=== PATIENT | female | born 1940 | race Caucasian/White ===

== ENCOUNTER 2020-08-31 08:46 | Outpatient (CLI) | payer MEDICARE, OTHER, SELFPAY ==
--- NOTE | 2020-08-31 17:37 | ONC CON_ITS ---
Dr. Pedraza New Patient Note Patient: Alma Delia Morlaez Unit #: [id number]: 1940 Dicatated By: Des Pedraza M.D.Date of Visit: August 31, 2020 Onc MED New Patient/Consult Referring Physician: Dr. JOHN BAZAN M.D. History of Present Illness: Ms. 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 Surveillance was planned As per patient recently she had a fall and sustained injury in her left chest, noticed some fullness and a skin lesion in the left axilla which was read, raised, scaly and tender and went to see Dr. Trevino charter boat captain in [facility] on July 06, 2020. Patient underwent MRI scan of the chest on July 25, 2020 which showed potential scattered bilateral pulmonary nodules, largest measuring up to 10 mm in the right lung, small lymph nodes within the axillary region do not appear to be enlarged. Hepatic cyst, renal cyst, for further evaluation CT scan of the chest was suggested which was done on August 11, 2020 which showed bilateral pulmonary nodules largest being 1 cm in the right side and small cluster of nodules in the right side and 4.4 mm posteriorly and inferiorly in the left lung and 1.5 cm low-density area in the posterior aspect of the right lobe of the liver could be metastatic disease versus cavernous hemangioma, or unusual cyst As patient has history of melanoma removal from left deltoid area/shoulder in May 2019, with MRI scan of the chest and followed by CT scan of chest done in July 2020 shows multiple pulmonary nodules and liver nodule, there was a concern about possible metastatic disease, she was referred from oncology clinic for evaluation Patient denies any specific complaints, no fever chills, no nausea or vomiting, no diarrhea constipation, no hemoptysis or hematemesis, no jaundice, no new bony pains, left axilla/chest wall pain/fullness has resolved., Appetite is good, no weight loss Past Medical History: Ms. Moralez's medical history consists of coronary arteriosclerosis, gastroesophageal reflux disease, hypercholesterolemia, and type II diabetes. Past Surgical History: Ms. Moralez's surgical/procedural history consists of shoulder repair in 2011 and hysterectomy in 1981. Medications: Aspirin 1 Tablet (of 81 mg) Tablet, chewable Oral daily, Atorvastatin Calcium 1 Tablet (of 20 mg) Oral daily, Daily Multiple Vitamins 1 Tablet Oral daily, glyBURIDE 0.5 Tablet (of 5 mg) Oral b.i.d., hydroCHLOROthiazide 1 Tablet (of 12.5 mg) Oral daily, Losartan Potassium 2 Tablet (of 50 mg) Oral b.i.d., metFORMIN HCl 1 Tablet (of 1000 mg) Oral b.i.d., NIFEdipine ER 1 Tablet (of 90 mg) Tablet SR 24 HR Oral daily, Propranolol HCl 1 Tablet (of 80 mg) Oral b.i.d. Allergies: Codeine Sulfate Social History: Ms. Moralez is . Ms. Moralez has never smoked. She has no history of drinking. Family History: Ms. Moralez's mother at age 67: type II diabetes, and myocardial infarction. Ms. Moralez's father at age 54: chronic kidney disease, and LUNG CANCER. Ms. Moralez has 3 brothers: 1 alive, 2 . She has 3 sisters: 1 alive, 2 . 4 CHILDREN, CAUSES OF INCLUDE: LUNG CANCER, STROKE, PREMATURE OF TWINS SIBLINGS CAUSES OF INCLUDE: LUNG CANCER, ALCOHOL ABUSE, HEART DISEASE. Review Of Symptoms: Review of Systems is not available for this patient. Vital Signs: Performed on August 31, 2020 15:14: 0, 31.33 (HIGH), 1.70 sq.m, 60 in, 97 %, 63 /min, 18 /min, 165/70 mm(hg) (HIGH), 97.2 F (LOW), and 160.4 lbs (HIGH). Performance Status: 0 - Fully active, able to carry on all predisease activities without restrictions. (ECOG) Physical Examination: ENMT - No mouth sores, no thrush, no jaundice, no cervical or axillary lymphadenopathy, Respiratory - Lungs are clear to auscultation, Cardiovascular - Regular rate and rhythm of heart, Abdomen - Soft, bowel sounds present, Extremities - No visible edema or rash. Lab/Imaging: Most recent lab results are not available for this patient. Impression: pT2a, NX, MX melanoma status post shave biopsy in May 2019 which showed 1.8 mm, no ulceration, peripheral margin positive for in situ, Demetrius level IV, 12 mitosis, lymph nodes clinically negative, patient underwent wide excision in May 2019 and clear margins obtained, patient declined sentinel lymph node biopsy,, Done at [facility] patient underwent CT scan of the chest on May 26, 2019 which showed multiple soft tissue nodules throughout all the lobes of both lungs largest measured 1 cm in the right lung and hypodense hypoenhancing lesion in the liver size about 1.2 cm, indeterminate in etiology most likely benign like hemangioma. Follow-up MRI scan of the chest Ordered by dermatology for left chest wall/axilla fullness/pain due to fall , done on July 25, 2020 showed potentially scattered bilateral pulmonary nodules, largest measure up to 10 mm in the right lung, small lymph nodes within her axillary region do not appear to be enlarged. Hepatic cysts Follow-up CT scan of chest done on August 11, 2020 showed multiple bilateral lung nodules largest is 1 cm in the right lung and in the right lobe of liver there is a hypodense area measuring 1.5 cm which could represent small cyst but could not completely exclude metastatic disease. Plan: Discussed with patient regarding her recent done CT scan of chest abdomen and MRI scan of the chest findings and when compared with CT scan of chest done in May 2019, showed no significant changes especially in the lung There is absolutely no change in bilateral pulmonary nodulesover the period of 14 months whereas liver lesion is 1.5 cm compared to 1.2 cm more than a year ago. Based on this comparison, and no other new symptoms, we would continue to observe and repeat CT scan of chest abdomen in 3 months and if there is a progression, will consider CT PET scan and possible biopsy. Discussed with patient's family, and daughter and agreed, case was also discussed with Dr. Trevino, charter boat captain. Return to clinic in 3 months with CBC CMP and follow-up CT scan of chest and abdomen. Signed By: Des Pedraza M.D. <<Signature on File>>
== END 2020-08-31 08:47 | disposition home or self-care (01) ==
PROVIDERS: Family Provider Family Medicine; Visit Provider Internal Medicine Hematology & Oncology
DX: D03.8 Melanoma in situ of other sites (principal); R91.1 Solitary pulmonary nodule; K76.89 Other specified diseases of liver; Z79.899 Other long term (current) drug therapy
CPT/HCPCS: 99204

== ENCOUNTER 2020-11-29 13:29 | Outpatient (CLI) | payer MEDICARE, OTHER, SELFPAY ==
--- NOTE | 2020-11-29 13:58 | CT_ITS ---
WS: [id number] CT CHEST AND ABDOMEN TECHNIQUE: Contrast-enhanced CT of the chest and abdomen with coronal and sagittal reformatted images . CLINICAL INFORMATION: MELANOMA IN SITU OF RIGHT UPPER LIMB, INCLUDING SHOULDER COMPARISON: Outside chest CT August 11, 2020 DLP: 1809.[address] scans at [facility] use at least one of these dose optimization techniques: automat ed exposure control; mA and/or kV adjustment per patient size (includes targeted exams where dose is matched to clinical indication); or iterative reconstruction. CT CHEST: Solid ovoid nodule in the right upper lobe measuring 9.5 mm near the right hilum is unchanged since t he prior CT August 11, 2020. Additional cluster of nodules in the right upper lobe laterally measuring 6.5 mm is unchanged. Clustered micronodularity along the right infrahilar region right upper lobe al so unchanged. 4 mm nodule in the left lower lobe posteriorly is unchanged. NEW 5 mm nodule in the left upper lobe a long the fissure. This was not present previously on August 11, 2020. Recommend 3 month follow-up. A f ew tiny subpleural nodules in the left upper lobe and left lower lobe are unchanged. Normal caliber thoracic aorta. Aortic calcification. Coronary calcification. No mediastinal or hilar lymphadenopathy. No axillary lymphadenopathy. CT ABDOMEN: Hepatomegaly with diffuse fatty infiltration liver. Normal portal vein and splenic vein. Peripheral e nhancing low-attenuation lesion right hepatic lobe measuring 15 mm is unchanged. This may represent c avernous hemangioma. Metastatic disease not entirely excluded. Normal GE junction. Fatty atrophy of t he pancreas. Splenic granulomas. Adrenal glands are normal. Normal renal parenchymal enhancement. No hydronephrosis. Large upper pole left renal cyst measuring 5 .8 x 5.0 CM. Smaller bilateral renal cysts. Normal caliber abdominal aorta. Aortic calcification. No periaortic or retroperitoneal lymphadenopathy. Fat-containing umbilical hernia. Normal thoracic spin e. Disc space narrowing with small disc protrusions at L2-L3 and L4-L5. CT/CT chest abdomen w con* IMPRESSION: 1. Multiple previously described noncalcified pulmonary nodules are stable sin ce August 11, 2020. 2. New noncalcified pulmonary nodule in the inferior segment of the left upper lobe along the fissure measuring 5 mm. This is indeterminate and metastatic di sease not entirely excluded. Recommend 3 month follow-up. 3. Peripheral enhancing 15 mm right hepatic lesion is unchanged since July. Differential considerations include cavernous hemangioma versus metasta tic disease. 4. Hepatomegaly with diffuse fatty infiltration. 5. Large left renal cyst upper pole left kidney measuring 5.8 x 5.0 CM. 6. No abdominal lymphadenopathy in the abdomen. 7. No mediastinal or hilar lymphadenopathy.
[2020-11-29] MEDS: iohexol 300 mg/mL 50 mL Btl PO (14:01)
[2020-11-29] MEDS: iodixanol 320 mg/mL 100mL Btl IV (14:34)
[2020-11-29 14:41] LABS: Blood Urea Nitrogen 17 mg/dL (8-23)
== END 2020-11-29 13:30 | disposition home or self-care (01) ==
PROVIDERS: PCP Internal Medicine; Visit Provider Internal Medicine Hematology & Oncology
DX: D03.61 Melanoma in situ of right upper limb, including shoulder (principal); R91.1 Solitary pulmonary nodule; K76.9 Liver disease, unspecified; R16.0 Hepatomegaly, not elsewhere classified; K76.0 Fatty (change of) liver, not elsewhere classified; N28.1 Cyst of kidney, acquired
CPT/HCPCS: 71260; 74160; 82565; 84520; Q9967

== ENCOUNTER 2020-12-12 10:54 | Outpatient (CLI) | payer MEDICARE, OTHER, SELFPAY ==
[2020-12-12 12:05] LABS: Basophils % 0.4 %; Eosinophils # 0.1 10^3/uL (0.0-0.8); Eosinophils % 0.9 %; Hematocrit 36.8 % (37.0-47.0); Hemoglobin 11.9 g/dL (11.5-15.3); Lymphocytes # 2.2 10^3/uL (0.8-4.8); Lymphocytes % 31.7 %; Mean Corpuscular HGB Conc 32.3 g/dL (30.0-36.0); Mean Corpuscular Hemoglobin 30.4 pg (28.0-34.0); Mean Corpuscular Volume 93.9 fl (81-99); Mean Platelet Volume 9.7 fL (7.4-10.4); Monocytes # 0.7 10^3/uL (0.2-0.9); Monocytes % 10.4 %; Neutrophils # 3.82 10^3/uL (1.8-7.7); Neutrophils % 55.9 %; Nucleated Red Blood Cells % 0 %; Platelet Count 271 10^3/cmm (130-400); Red Blood Count 3.92 10^6/uL (4.1-5.3); Red Cell Distribution Width 13.8 % (12.1-15.1); White Blood Count 6.8 10^3/uL (4.0-10.0)
[2020-12-12 12:26] LABS: Alanine Aminotransferase 13 U/L (0-33); Albumin Level 4.3 g/dL (3.5-5.2); Alkaline Phosphatase 83 IU/L (35-105); Aspartate Amino Transferase 17 U/L (0-32); Blood Urea Nitrogen 17 mg/dL (8-23); Calcium 9.2 mg/dL (8.5-10.5); Carbon Dioxide 28 mmol/L (22-29); Chloride 104 mmol/L (98-107); Globulin 2.6 g/dL (1.3-4.6); Glucose 165 mg/dL (65-115); Osmolality Calculated 299 mOsm/kg (285-295); Sodium 142 mmol/L (136-145); Total Bilirubin 0.4 mg/dL (0.15-1.2); Total Protein 6.9 g/dL (6.6-8.7)
--- NOTE | 2020-12-12 17:26 | ONC FU_ITS ---
Dr. Pedraza follow up note Patient: Alma Delia Moralez Unit #: [id number]: 1940 Dicatated By: Des Pedraza M.D.Date of Visit:Dec 12, 2020 Onc Med Follow-up/Prog Note History of Present Illness: Ms. 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 Surveillance was planned As per patient recently she had a fall and sustained injury in her left chest, noticed some fullness and a skin lesion in the left axilla which was read, raised, scaly and tender and went to see Dr. Trevino economics analyst in [facility] on July 06, 2020. Patient underwent MRI scan of the chest on July 25, 2020 which showed potential scattered bilateral pulmonary nodules, largest measuring up to 10 mm in the right lung, small lymph nodes within the axillary region do not appear to be enlarged. Hepatic cyst, renal cyst, for further evaluation CT scan of the chest was suggested which was done on August 11, 2020 which showed bilateral pulmonary nodules largest being 1 cm in the right side and small cluster of nodules in the right side and 4.4 mm posteriorly and inferiorly in the left lung and 1.5 cm low-density area in the posterior aspect of the right lobe of the liver could be metastatic disease versus cavernous hemangioma, or unusual cyst As patient has history of melanoma removal from left deltoid area/shoulder in May 2019, with MRI scan of the chest and followed by CT scan of chest done in July 2020 shows multiple pulmonary nodules and liver nodule, there was a concern about possible metastatic disease, she was referred from oncology clinic for evaluation Patient denies any specific complaints, no fever chills, no nausea or vomiting, no diarrhea constipation, no hemoptysis or hematemesis, no jaundice, no new bony pains, left axilla/chest wall pain/fullness has resolved., Appetite is good, no weight loss Came for follow-up, denies any specific complaints, no fever chills, no nausea or vomiting, no diarrhea constipation, no new bony pains. Appetite is good Medications: amLODIPine Besylate 1 Tablet (of 5 mg) Oral daily, Aspirin 1 Tablet (of 81 mg) Tablet, chewable Oral daily, Atorvastatin Calcium 1 Tablet (of 20 mg) Oral daily, Daily Multiple Vitamins 1 Tablet Oral daily, glyBURIDE 0.5 Tablet (of 5 mg) Oral b.i.d., hydroCHLOROthiazide 1 Tablet (of 12.5 mg) Oral daily, Losartan Potassium 2 Tablet (of 50 mg) Oral b.i.d., metFORMIN HCl 1 Tablet (of 1000 mg) Oral b.i.d., Propranolol HCl 1 Tablet (of 80 mg) Oral b.i.d. Allergies: Codeine Sulfate Review of Systems: Review of Systems is not available for this patient. Vital Signs: Performed on Dec 12, 2020 16:48 Height - 60.00 in Weight - 162 lbs (HIGH) BSA - 1.71 sq.m BMI - 31.64 (HIGH) Temperature - 97.6 F (LOW) Pulse - 64 /min Respiration - 18 /min BP - 153/82 mm(hg) (HIGH) O2 Sat - 98 % Pain - 0 Fatigue - 0 Performance Status: 0 - Fully active, able to carry on all predisease activities without restrictions. (ECOG) Physical Examination: ENMT - No mouth sores, no thrush, no jaundice no cervical lymphadenopathy, Respiratory - Lungs are clear to auscultation, Cardiovascular - Regular rate and rhythm of heart, Abdomen - Soft, bowel sounds present, Extremities - No visible edema. Lab/Imaging: Most recent lab results are not available for this patient. Impression: pT2a, NX, MX melanoma status post shave biopsy in May 2019 which showed 1.8 mm, no ulceration, peripheral margin positive for in situ, Demetrius level IV, 12 mitosis, lymph nodes clinically negative, patient underwent wide excision in May 2019 and clear margins obtained, patient declined sentinel lymph node biopsy,, Done at [facility] patient underwent CT scan of the chest on May 26, 2019 which showed multiple soft tissue nodules throughout all the lobes of both lungs largest measured 1 cm in the right lung and hypodense hypoenhancing lesion in the liver size about 1.2 cm, indeterminate in etiology most likely benign like hemangioma. Follow-up MRI scan of the chest Ordered by dermatology for left chest wall/axilla fullness/pain due to fall , done on July 25, 2020 showed potentially scattered bilateral pulmonary nodules, largest measure up to 10 mm in the right lung, small lymph nodes within her axillary region do not appear to be enlarged. Hepatic cysts Follow-up CT scan of chest done on August 11, 2020 showed multiple bilateral lung nodules largest is 1 cm in the right lung and in the right lobe of liver there is a hypodense area measuring 1.5 cm which could represent small cyst but could not completely exclude metastatic disease.follow-up CT scan of chest abdomen done on November 29, 2020 showed multiple previously described noncalcified pulmonary nodules are stable since August 11, 2020. New noncalcified pulmonary nodule in the inferior segment of left upper lobe along the fissure measuring 5 mm. Peripheral enhancing 15 mm right hepatic lesion is unchanged since July 2020. Hepatomegaly with diffuse fatty infiltration. Large left renal cyst upper pole left kidney measuring 5.8 x 5 cm. No abdominal lymphadenopathy no mediastinal or hilar lymphadenopathy. Plan: Discussed with patient regarding her labs white blood count 6.8 hemoglobin 11.9 hematocrit 36.8 platelets 271,000 and CMP within normal limit except glucose 165 follow-up CT scan of chest abdomen done on November 29, 2020 showed multiple previously described noncalcified pulmonary nodules are stable since August 11, 2020. New noncalcified pulmonary nodule in the inferior segment of left upper lobe along the fissure measuring 5 mm. Peripheral enhancing 15 mm right hepatic lesion is unchanged since July 2020. Hepatomegaly with diffuse fatty infiltration. Large left renal cyst upper pole left kidney measuring 5.8 x 5 cm. No abdominal lymphadenopathy no mediastinal or hilar lymphadenopathy. Clinically, patient doing well with no new signs symptom suggestive of disease progression her follow-up CT scan of chest abdomen shows no change in the previously described multiple pulmonary nodules and peripheral enhancing low-attenuation lesion in the right hepatic lobe. Subcentimeter noncalcified nodule in the inferior segment of left upper lobe which is inconclusive, and her lab work-up including CBC CMP is within normal range except mild hyperglycemia, at this point we will continue to monitor, patient return to clinic in 3 months with CBC CMP and CT scan of chest abdomen, if there is a progression, may consider CT PET scan. Signed By: Des Pedraza M.D. <<Signature on File>>
== END 2020-12-12 10:55 | disposition home or self-care (01) ==
LOC: ONCMED 10:59
PROVIDERS: PCP Internal Medicine; Visit Provider Internal Medicine Hematology & Oncology
DX: Z09 Encounter for follow-up examination after completed treatment for conditions other than malignant neoplasm (principal); Z86.006 Personal history of melanoma in-situ; R91.8 Other nonspecific abnormal finding of lung field; N28.1 Cyst of kidney, acquired
CPT/HCPCS: 36415; 80053; 85025; 99214

== ENCOUNTER 2021-04-03 12:52 | Outpatient (CLI) | payer MEDICARE, OTHER, SELFPAY ==
--- NOTE | 2021-04-03 12:57 | CT_ITS ---
WS: [id number] Exam: CT chest abdomen w con* Date/Time of Exam: 04/03/2021 1:25 PM Reason For Exam: MELANOMA IN SITU OF RIGHT UPPER LIMB, INCLUDING SHOULDER DLP: 1800.[address] scans at [facility] use at least one of these dose optimization techniques: automated e xposure control; mA and/or kV adjustment per patient size (includes targeted exams where dose is matc hed to clinical indication); or iterative reconstruction. Comparison 11/29/2020. CT scan of the chest. Previously described subcentimeter noncalcified nodules in the right lung are stable in appearance si nce the previous exam. Previously noted 5.36 cm noncalcified nodule in the inferior left lower lobe i s also stable and actually smaller than noted previously. There are no new suspicious nodules or mass es in either lung. The lungs are fully expanded. No acute infiltrates. No mediastinal or hilar lympha denopathy. No significant axillary lymphadenopathy seen. Unremarkable thyroid tissue. The airway is p atent. The thoracic aorta is normal in caliber. The central pulmonary arteries are clear. Coronary ar nayeli calcifications. No pleural or pericardial effusion. No destructive bone lesions. The chest wall is intact. CT/CT chest abdomen w con* IMPRESSION: 1. Stable appearing subcentimeter nodular densities in the right lung. Stable a ppearing and actually smaller nodule in the inferior aspect of the left upper l obe. 2. No new pulmonary nodules or masses. No significant lymphadenopathy in the ch est. CT scan of the abdomen with contrast. Fatty liver noted. A 10.8 mm faint rim-enhancing low-attenuation lesion seen in the posterior right hepatic lobe thought to represent a cavernous hemangioma i s unchanged. 3 mm low-attenuation density in the left hepatic lobe likely a tin y cyst. This is also stable. No new lesions in the liver. The gallbladder is un remarkable. The spleen, stomach and pancreas appear normal. Normal adrenal glan ds. The abdominal aorta is normal in caliber. The portal vein and IVC are paten t. No lymphadenopathy or free air. Small bowel loops are not dilated. Bilateral renal cysts are noted and unchanged. The largest cyst is at the anterior aspec t of the left kidney measures about 6.2 cm at greatest diameter. Diverticuli in the left colon. No sign of acute diverticulitis. No destructive bone lesions. The abdominal wall is intact. IMPRESSION: 1. No new mass or lymphadenopathy in the abdomen. 2. Stable appearing 10.8 mm rim-enhancing lesion in the right hepatic lobe prob ably a hemangioma. 3 mm low-attenuation density in the left hepatic lobe unchan ged. This is most likely a tiny cyst. 3. Bilateral renal cysts. Diverticulosis of the left colon.
[2021-04-03] MEDS: iodixanol 320 mg/mL 100mL Btl IV (16:35)
[2021-04-03] MEDS: iohexol 300 mg/mL 50 mL Btl PO (16:36)
== END 2021-04-03 12:53 | disposition home or self-care (01) ==
PROVIDERS: PCP Internal Medicine; Visit Provider Internal Medicine Hematology & Oncology
DX: D03.61 Melanoma in situ of right upper limb, including shoulder (principal); Q61.02 Congenital multiple renal cysts; K57.90 Diverticulosis of intestine, part unspecified, without perforation or abscess without bleeding
CPT/HCPCS: 71260; 74160; Q9967

== ENCOUNTER 2021-04-17 10:40 | Outpatient (CLI) | payer MEDICARE, OTHER, SELFPAY ==
[2021-04-17 11:37] LABS: Basophils % 0.4 %; Eosinophils # 0.1 10^3/uL (0.0-0.8); Eosinophils % 0.7 %; Hematocrit 38.7 % (37.0-47.0); Hemoglobin 12.6 g/dL (11.5-15.3); Lymphocytes # 2.2 10^3/uL (0.8-4.8); Lymphocytes % 29.4 %; Mean Corpuscular HGB Conc 32.6 g/dL (30.0-36.0); Mean Corpuscular Hemoglobin 29.8 pg (28.0-34.0); Mean Corpuscular Volume 91.5 fl (81-99); Mean Platelet Volume 9.4 fL (7.4-10.4); Monocytes # 0.7 10^3/uL (0.2-0.9); Neutrophils # 4.58 10^3/uL (1.8-7.7); Nucleated Red Blood Cells % 0 %; Platelet Count 262 10^3/cmm (130-400); Red Blood Count 4.23 10^6/uL (4.1-5.3); Red Cell Distribution Width 14.1 % (12.1-15.1); White Blood Count 7.6 10^3/uL (4.0-10.0)
[2021-04-17 12:03] LABS: Alanine Aminotransferase 14 U/L (0-33); Albumin Level 4.3 g/dL (3.5-5.2); Alkaline Phosphatase 86 IU/L (35-105); Anion Gap 15.9 (5-19); Aspartate Amino Transferase 16 U/L (0-32); Blood Urea Nitrogen 15 mg/dL (8-23); Carbon Dioxide 27 mmol/L (22-29); Chloride 102 mmol/L (98-107); Globulin 2.7 g/dL (1.3-4.6); Glucose 164 mg/dL (65-115); Osmolality Calculated 296 mOsm/kg (285-295); Potassium 3.9 mmol/L (3.5-5.1); Sodium 141 mmol/L (136-145); Total Bilirubin 0.4 mg/dL (0.15-1.2)
--- NOTE | 2021-04-17 14:39 | ONC FU_ITS ---
Dr. Pedraza follow up note Patient: Alma Delia Moralez Unit #: [id number]: 1940 Dicatated By: Des Pedraza M.D.Date of Visit:Apr 17, 2021 Onc Med Follow-up/Prog Note History of Present Illness: Ms. 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 Surveillance was planned As per patient recently she had a fall and sustained injury in her left chest, noticed some fullness and a skin lesion in the left axilla which was read, raised, scaly and tender and went to see Dr. Trevino die hardener in [facility] on July 06, 2020. Patient underwent MRI scan of the chest on July 25, 2020 which showed potential scattered bilateral pulmonary nodules, largest measuring up to 10 mm in the right lung, small lymph nodes within the axillary region do not appear to be enlarged. Hepatic cyst, renal cyst, for further evaluation CT scan of the chest was suggested which was done on August 11, 2020 which showed bilateral pulmonary nodules largest being 1 cm in the right side and small cluster of nodules in the right side and 4.4 mm posteriorly and inferiorly in the left lung and 1.5 cm low-density area in the posterior aspect of the right lobe of the liver could be metastatic disease versus cavernous hemangioma, or unusual cyst As patient has history of melanoma removal from left deltoid area/shoulder in May 2019, with MRI scan of the chest and followed by CT scan of chest done in July 2020 shows multiple pulmonary nodules and liver nodule, there was a concern about possible metastatic disease, she was referred from oncology clinic for evaluation Patient denies any specific complaints, no fever chills, no nausea or vomiting, no diarrhea constipation, no hemoptysis or hematemesis, no jaundice, no new bony pains, left axilla/chest wall pain/fullness has resolved., Appetite is good, no weight loss Follow-up CT scan of chest abdomen pelvis done on April 03, 2021 showed stable appearing subcentimeter nodular densities in the right lung, stable appearing and actually smaller nodules in the inferior aspect of left upper lobe. No new pulmonary nodules or masses. No significant lymphadenopathy in the chest. and CT scan abdomen showed no new mass or lymphadenopathy in the abdomen. Stable appearing 10.8 mm rim-enhancing lesion in the right hepatic lobe probably hemangioma. 3 mm low-attenuation density in the left hepatic lobe unchanged most likely tiny cyst. Came for follow-up, denies any specific complaints, no fever chills, no nausea or vomiting, no diarrhea constipation, no new bony pains, no hemoptysis or hematemesis, no jaundice, no weight loss, appetite is good, No headaches blurred vision or double vision Medications: amLODIPine Besylate 1 Tablet (of 5 mg) Oral daily, Aspirin 1 Tablet (of 81 mg) Tablet, chewable Oral daily, Atorvastatin Calcium 1 Tablet (of 20 mg) Oral daily, Daily Multiple Vitamins 1 Tablet Oral daily, glyBURIDE 0.5 Tablet (of 5 mg) Oral b.i.d., hydroCHLOROthiazide 1 Tablet (of 12.5 mg) Oral daily, Losartan Potassium 2 Tablet (of 50 mg) Oral b.i.d., metFORMIN HCl 1 Tablet (of 1000 mg) Oral b.i.d., Propranolol HCl 1 Tablet (of 80 mg) Oral b.i.d. Allergies: Codeine Sulfate Review of Systems: Review of Systems is not available for this patient. Vital Signs: Performed on Apr 17, 2021 12:45 Height - 60.00 in Weight - 162.4 lbs (HIGH) BSA - 1.71 sq.m BMI - 31.72 (HIGH) Temperature - 97.1 F (LOW) Pulse - 64 /min Respiration - 18 /min BP - 154/74 mm(hg) (HIGH) O2 Sat - 97 % Pain - 0 Performance Status: 0 - Fully active, able to carry on all predisease activities without restrictions. (ECOG) Physical Examination: ENMT - No mouth sores, no thrush, no jaundice, no cervical lymphadenopathy, Respiratory - Lungs are clear to auscultation, Cardiovascular - Regular rate and rhythm of heart, Abdomen - Soft, bowel sounds present, Extremities - No visible edema. Lab/Imaging: Most recent lab results are not available for this patient. Impression: pT2a, NX, MX melanoma status post shave biopsy in May 2019 which showed 1.8 mm, no ulceration, peripheral margin positive for in situ, Demetrius level IV, 12 mitosis, lymph nodes clinically negative, patient underwent wide excision in May 2019 and clear margins obtained, patient declined sentinel lymph node biopsy,, Done at [facility] patient underwent CT scan of the chest on May 26, 2019 which showed multiple soft tissue nodules throughout all the lobes of both lungs largest measured 1 cm in the right lung and hypodense hypoenhancing lesion in the liver size about 1.2 cm, indeterminate in etiology most likely benign like hemangioma. Follow-up MRI scan of the chest Ordered by dermatology for left chest wall/axilla fullness/pain due to fall , done on July 25, 2020 showed potentially scattered bilateral pulmonary nodules, largest measure up to 10 mm in the right lung, small lymph nodes within her axillary region do not appear to be enlarged. Hepatic cysts Follow-up CT scan of chest done on August 11, 2020 showed multiple bilateral lung nodules largest is 1 cm in the right lung and in the right lobe of liver there is a hypodense area measuring 1.5 cm which could represent small cyst but could not completely exclude metastatic disease.follow-up CT scan of chest abdomen done on November 29, 2020 showed multiple previously described noncalcified pulmonary nodules are stable since August 11, 2020. New noncalcified pulmonary nodule in the inferior segment of left upper lobe along the fissure measuring 5 mm. Peripheral enhancing 15 mm right hepatic lesion is unchanged since July 2020. Hepatomegaly with diffuse fatty infiltration. Large left renal cyst upper pole left kidney measuring 5.8 x 5 cm. No abdominal lymphadenopathy no mediastinal or hilar lymphadenopathy. Plan: Discussed with patient regarding her labs white blood count 7.6 hemoglobin 12.6 hematocrit 38.7 platelets 262,000 CMP within normal limits and follow-up CT scan of chest abdomen which shows no evidence of new lesions, stable appearing subcentimeter nodular density in the right lung and stable appearing subcentimeter lesion in the right hepatic lobe probably hemangioma and 3 mm density in the left hepatic lobe probably a tiny cyst. Clinically, patient doing well with no new signs symptom suggestive of recurrence of disease her lab work-up is within normal range as well as CT scan of chest abdomen shows no changes suggestive of disease progression or recurrence of disease. At this point, we will continue to monitor and she will return to clinic in 4 months with CBC CMP and follow-up CT scan of chest and abdomen Signed By: Des Pedraza M.D. <<Signature on File>>
== END 2021-04-17 10:41 | disposition home or self-care (01) ==
LOC: ONCMED 10:49
PROVIDERS: PCP Internal Medicine; Visit Provider Internal Medicine Hematology & Oncology
DX: D03.61 Melanoma in situ of right upper limb, including shoulder (principal); D03.8 Melanoma in situ of other sites; R91.8 Other nonspecific abnormal finding of lung field; Z79.82 Long term (current) use of aspirin; Z79.899 Other long term (current) drug therapy
CPT/HCPCS: 36415; 80053; 85025; 99214

== ENCOUNTER 2021-10-11 11:30 | Oncology outpatient (recurring) (ONCR) | payer MEDICARE, SELFPAY ==
--- NOTE | 2021-10-04 13:48 | CT_ITS ---
WS: [id number] CT CHEST AND ABDOMEN WITHOUT CONTRAST HISTORY: MELANOMA IN SITU OF RIGHT upper LIMB, INCLUDING SHOULDER TECHNIQUE: Axial imaging is performed through the chest and abdomen with oral contra. Sagittal and co christiano reformats. All CT scans at [facility] use at least one of these dose optimization techn iques: automated exposure control; mA and/or kV adjustment per patient size (includes targeted exams where dose is matched to clinical indication); or iterative reconstruction. CONTRAST: None DLP: 978.99 mGy.cm COMPARISON: 04/03/2021, 11/29/[address]: Numerous bilateral pulmonary nodules are stable over several prior examinations. The larges t nodule measures 8 mm in the RIGHT upper lobe. No new nodule or pneumonia. No pericardial or pleural effusions. Heart is top normal size. Mild atherosclerosis aorta. Small mediastinal and hilar lymph n odes are stable. Mild spondylitic changes in the thoracic spine. No osteoblastic or osteolytic bone disease. Abdomen CT: Sensitivity of this examination is compromised without IV contrast. The liver is mildly enlarged with hepatic steatosis. Low-attenuation lesion in the RIGHT lobe of the liver is stable size over the pas t several examinations measuring 11 mm. No bile duct dilatation. Scattered hepatic and splenic granul omata. Normal size gallbladder. No adrenal mass. Negative pancreas. Bilateral low-attenuation masses within each kidney. These were noted to be cysts on prior studies. T here is a hyperdense nodule lower pole LEFT kidney measuring 9 mm. Probably representing a hemorrhagi c cyst or cyst increased proteinaceous debris. Atherosclerosis aorta. Debris layering within the stomach. No obstruction from the stomach or small bowel. There are a few s cattered diverticula in the visualized colon in the abdomen. No adenopathy or ascites. No osteoblastic or osteolytic bone disease. Mild change CT/CT chest abdomen wo con IMPRESSION: 1. Long-term stability of multiple bilateral pulmonary nodules. The largest me asures 8 mm in the RIGHT upper lobe. 2. No mediastinal or hilar adenopathy. 3. Noncontrast evaluation of the liver is stable. This study lacks sensitivity for early metastatic lesions in the liver. 4. Bilateral renal cysts. 5. Atherosclerosis aorta. 6. No adrenal mass.
[2021-10-11 11:37] LABS: Basophils % 0.3 %; Eosinophils # 0.1 10^3/uL (0.0-0.8); Eosinophils % 1.1 %; Hematocrit 36.6 % (37.0-47.0); Hemoglobin 12.1 g/dL (11.5-15.3); Lymphocytes # 1.8 10^3/uL (0.8-4.8); Lymphocytes % 25.5 %; Mean Corpuscular HGB Conc 33.1 g/dL (30.0-36.0); Mean Corpuscular Volume 90.6 fl (81-99); Mean Platelet Volume 9.7 fL (7.4-10.4); Monocytes # 0.6 10^3/uL (0.2-0.9); Monocytes % 8.3 %; Neutrophils # 4.56 10^3/uL (1.8-7.7); Neutrophils % 64.1 %; Nucleated Red Blood Cells % 0 %; Platelet Count 274 10^3/cmm (130-400); Red Blood Count 4.04 10^6/uL (4.1-5.3); Red Cell Distribution Width 14.2 % (12.1-15.1); White Blood Count 7.1 10^3/uL (4.0-10.0)
[2021-10-11 12:04] LABS: Alanine Aminotransferase 12 U/L (0-33); Albumin Level 4.3 g/dL (3.5-5.2); Alkaline Phosphatase 90 IU/L (35-105); Aspartate Amino Transferase 13 U/L (0-32); Blood Urea Nitrogen 17 mg/dL (8-23); Carbon Dioxide 28 mmol/L (22-29); Chloride 103 mmol/L (98-107); Globulin 2.5 g/dL (1.3-4.6); Glucose 174 mg/dL (65-115); Osmolality Calculated 298 mOsm/kg (285-295); Sodium 141 mmol/L (136-145); Total Bilirubin 0.4 mg/dL (0.15-1.2); Total Protein 6.8 g/dL (6.6-8.7)
== END 2021-10-11 23:59 | disposition home or self-care (01) ==
PROVIDERS: PCP Internal Medicine; Visit Provider Internal Medicine Hematology & Oncology
DX: C43.62 Malignant melanoma of left upper limb, including shoulder (principal); E78.00 Pure hypercholesterolemia, unspecified
CPT/HCPCS: 36415; 71250; 74150; 80053; 85025; 99214

== ENCOUNTER 2022-04-19 08:46 | Outpatient (CLI) | payer MEDICARE, SELFPAY ==
[2022-04-19 09:16] LABS: Basophils % 0.3 %; Eosinophils % 0.6 %; Hematocrit 39.7 % (37.0-47.0); Hemoglobin 12.5 g/dL (11.5-15.3); Lymphocytes # 1.8 10^3/uL (0.8-4.8); Lymphocytes % 28.3 %; Mean Corpuscular HGB Conc 31.5 g/dL (30.0-36.0); Mean Corpuscular Hemoglobin 29.9 pg (28.0-34.0); Mean Platelet Volume 9.4 fL (7.4-10.4); Monocytes # 0.6 10^3/uL (0.2-0.9); Neutrophils # 3.95 10^3/uL (1.8-7.7); Neutrophils % 61.2 %; Nucleated Red Blood Cells % 0 %; Platelet Count 256 10^3/cmm (130-400); Red Blood Count 4.18 10^6/uL (4.1-5.3); White Blood Count 6.5 10^3/uL (4.0-10.0)
[2022-04-19 09:39] LABS: Alanine Aminotransferase 12 U/L (0-33); Albumin Level 4.3 g/dL (3.5-5.2); Alkaline Phosphatase 82 U/L (35-105); Anion Gap 13.3 (5-19); Aspartate Amino Transferase 17 U/L (0-32); Blood Urea Nitrogen 16 mg/dL (8-23); Calcium 9.4 mg/dL (8.5-10.5); Carbon Dioxide 27 mmol/L (22-29); Chloride 103 mmol/L (98-107); Globulin 2.8 g/dL (1.3-4.6); Glucose 181 mg/dL (65-115); Osmolality Calculated 294 mOsm/kg (285-295); Potassium 4.3 mmol/L (3.5-5.1); Sodium 139 mmol/L (136-145); Total Bilirubin 0.4 mg/dL (0.15-1.2); Total Protein 7.1 g/dL (6.6-8.7)
--- NOTE | 2022-04-19 10:00 | CTR_ITS ---
PROCEDURE INFORMATION: Exam: CT Chest Without Contrast; Diagnostic Exam date and time: 04/19/2022 9:22 AM Age: 81 years old Clinical indication: Condition or disease; Lung condition and disease; Other: Pulmonary nodues, melanoma f/u; Primary cancer: Melanoma involving left upper extremity deltoid /shoulder, underwent shave biopsy which showed primary lesion was 1.8 mm, with negative deep margins and peripheral margin positive for in situ, no ulceration, jensen level iv, 12 mitosis, lymph node were clinically negative, so underwent wide excision on May 27, 2019 as patient declined sentinel lymph node biopsy at that time , stage pt2 a , follow-up oncological assessment; Prior surgery; Surgery type: Delta/shoulder; Additional info: Compare to last TECHNIQUE: Imaging protocol: Diagnostic computed tomography of the chest without contrast. Radiation optimization: All CT scans at this facility use at least one of these dose optimization techniques: automated exposure control; mA and/or kV adjustment per patient size (includes targeted exams where dose is matched to clinical indication); or iterative reconstruction. COMPARISON: CT chest abdomen wo con 10/04/2021 2:28 PM RADIATION DOSE METRICS: Total DLP (mGy-cm): 475.66 FINDINGS: Lungs: Stable subcentimeter noncalcified bilateral pulmonary nodules including 3 mm right upper lobe (series 6: Image 31), 7 mm right upper lobe (series 5: Image 38), 3 mm right lower lobe (series 5: Image 79), and 3 mm left lower lobe (series 5: Image 61) nodules. For patients at low risk (minimal or absent history of smoking and of other known risk factors), recommend CT Chest at 3-6 months, then consider CT Chest at 18-24 months. For patients at high risk (history of smoking or of other known risk factors), recommend CT Chest at 3-6 months, then CT Chest at 18-24 months. (Reference: [place]). Interstitial prominence and trace lower lobe airspace disease. Pleural spaces: No pleural effusion. Heart: Coronary artery calcification. Lymph nodes: Calcified and noncalcified lymph nodes, with the majority of the noncalcified lymph nodes subcentimeter in size. Vasculature: Calcification and ectasia of the thoracic aorta. Mediastinum: Small hiatal hernia. Bones/joints: Bilateral rotator cuff repairs. Degenerative change. Soft tissues: Punctate right breast calcification. PROCEDURE INFORMATION: Exam: CT Abdomen Without Contrast Exam date and time: 04/19/2022 9:22 AM Age: 81 years old Clinical indication: Condition or disease; Lung condition and disease; Other: Pulmonary nodues, melanoma f/u; Primary cancer: Melanoma involving left upper extremity deltoid /shoulder, underwent shave biopsy which showed primary lesion was 1.8 mm, with negative deep margins and peripheral margin positive for in situ, no ulceration, jensen level iv, 12 mitosis, lymph node were clinically negative, so underwent wide excision on May 27, 2019 as patient declined sentinel lymph node biopsy at that time , stage pt2 a , follow-up oncological assessment; Prior surgery; Surgery type: Delta/shoulder; Additional info: Compare to last TECHNIQUE: Imaging protocol: Computed tomography of the abdomen without contrast. Radiation optimization: All CT scans at this facility use at least one of these dose optimization techniques: automated exposure control; mA and/or kV adjustment per patient size (includes targeted exams where dose is matched to clinical indication); or iterative reconstruction. COMPARISON: CT chest abdomen wo con 10/04/2021 2:28 PM RADIATION DOSE METRICS: Total DLP (mGy-cm): 475.66 FINDINGS: Liver: Fatty infiltration of the liver and calcified granulomata. Stable 13 mm nodular hypodense lesion in the posterior segment of the right hepatic lobe (series 9: Image 26) with an attenuation coefficient consistent with cyst. Questionable hypodense lesion in the anterior segment of the right hepatic lobe (series 9: Image 21), which can be better evaluated with contrast enhanced CT or MRI, as clinically indicated. Gallbladder and bile ducts: Unremarkable gallbladder. Pancreas: No pancreatic mass or ductal dilatation. Spleen: Splenic granulomata. Adrenal glands: Subtle left adrenal nodularity. Kidneys and ureters: Bilateral renal cysts, including a stable 6.7 cm left renal cyst. Stable 10 mm hyperdense nodular lesion in the lower pole the left kidney. 2 mm nonobstructing right renal calculus. Stomach and bowel: Wall thickening in the nondistended stomach. Prominent stool. Diverticula, without pericolonic inflammation. Appendix: Nonvisualization of the appendix. Intraperitoneal space: No free fluid. Vasculature: Vascular calcification. No abdominal aortic aneurysm. Lymph nodes: Subcentimeter lymph nodes. Bones/joints: Degenerative change and disc bulging. Soft tissues: Unremarkable. CT/CT chest abdomen wo con IMPRESSION: 1. Stable subcentimeter noncalcified bilateral pulmonary nodules . 2. Additional findings as described above. IMPRESSION: 1. Questionable 1.5 cm nodular hypodense lesion in the anterior segment of the right hepatic lobe (series 9: Image 21), which can be better evaluated with contrast enhanced CT or MRI, as clinically indicated. 2. Additional findings as described above.
== END 2022-04-19 08:47 | disposition home or self-care (01) ==
PROVIDERS: PCP Internal Medicine; Visit Provider Internal Medicine Hematology & Oncology
DX: C43.9 Malignant melanoma of skin, unspecified (principal)
CPT/HCPCS: 36415; 71250; 74150; 80053; 85025

== ENCOUNTER 2022-04-22 13:54 | Oncology outpatient (recurring) (ONCR) | payer MEDICARE, OTHER, SELFPAY | END 2022-05-14 23:59 | disposition home or self-care (01) | PROVIDERS: PCP Internal Medicine; Visit Provider Internal Medicine Hematology & Oncology | DX: R42 Dizziness and giddiness (principal); R91.8 Other nonspecific abnormal finding of lung field; R73.9 Hyperglycemia, unspecified; Z85.820 Personal history of malignant melanoma of skin; Z08 Encounter for follow-up examination after completed treatment for malignant neoplasm | CPT/HCPCS: 99214 ==

== ENCOUNTER 2022-05-01 15:05 | Outpatient (CLI) | payer MEDICARE, OTHER, SELFPAY ==
--- NOTE | 2022-05-01 15:15 | MR_ITS ---
WS: [id number] MRI HEAD WITH CONTRAST TECHNIQUE: Sagittal T1, T2 axial, T2 axial FLAIR, axial susceptibility weighted imaging, axial diffus ion weighted images, and coronal T2 images were obtained. Pre and post-T1 axial and post T1 coronal i mages. ADC and FSPGR images. CLINICAL INFORMATION: History of melanoma COMPARISON: None. FINDINGS: No evidence restricted diffusion to suggest acute ischemia. Ventricular system and basal cisterns are patent. Moderate small vessel changes. Moderate parenchymal volume loss. Normal posterior fossa. Nor mal vascular flow voids at the skull base. No extra-axial fluid collections. No evidence of mass or m ass effect. Paranasal sinuses are well aerated. Mastoid air cells well aerated. Normal posterior nasopharynx. Normal parapharyngeal fat. No hemosiderin on susceptibly weighted image s. Normal optic chiasm and pituitary infundibulum. Mild symmetric atrophy Temporal lobes and hippocam pal formations. Incidental ganglion cyst or degenerative cyst at the RIGHT TMJ measuring 11 mm. No abnormal intracranial enhancement. No evidence of enhancing intracranial metastatic disease. Shyanne l dural venous sinuses. Normal optic chiasm and pituitary infundibulum. Normal cavernous sinuses and Meckel's cave. MR/MR head wo/w con [id number] IMPRESSION: 1. No evidence of restricted diffusion to suggest acute ischemia. 2. No evidence of enhancing intracranial metastatic disease. 3. Moderate small vessel changes with moderate parenchymal volume loss. 4. Normal optic chiasm and pituitary infundibulum. 5. No acute intracranial findings.
[2022-05-01] MEDS: gadobenate dimeglumine 20 mL vial IV (15:53)
== END 2022-05-01 15:06 | disposition home or self-care (01) ==
LOC: RAD 15:06
PROVIDERS: PCP Internal Medicine; Visit Provider Internal Medicine Hematology & Oncology
DX: Z85.820 Personal history of malignant melanoma of skin (principal)
CPT/HCPCS: 70553; A9577

== ENCOUNTER 2022-05-04 10:52 | Outpatient (CLI) | payer MEDICARE, OTHER, SELFPAY ==
--- NOTE | 2022-05-04 | PETR_ITS ---
PROCEDURE INFORMATION: Exam: PET/CT Skull Base to Mid-thigh Exam date and time: 05/04/2022 12:15 PM Age: 82 years old Clinical indication: Condition or disease; Primary cancer: Mag melonoma left upper limb; Initial oncological staging assessment; Condition/disease: Melanoma involving left upper extremity deltoid /shoulder, underwent shave biopsy which showed primary lesion was 1.8 mm, with negative deep margins and peripheral margin positive for in situ, no ulceration, jensen level iv, 12 mitosis, lymph node were clinically negative, so underwent wide excision on May 27, 2019 as patient declined sentinel lymph node biopsy at that time , stage pt2 a , . patient underwent CT scan of the chest done on May 26, 2019 which showed several small indeterminate nodules in the bilateral lobes, they were too small to biopsy, index lesion was 1 cm right lung and single lesion in the liver size but 1.2 cm. Surveillance was planned. Follow-up CT scan of chest abdomen pelvis done on April 19, 2022 showed stable subcentimeter noncalcified bilateral pulm nodules. Questionable 1.5 cm nodular hypodense lesion in the anterior segment of right hepatic lobe. Prior surgery; Patient HX: Inj site - lac; Additional info: Malignant melanoma left upper limb, inc shoulder LABS AND CLINICAL REPORTS: Glucose: 131 mg/dl Treatment strategy for malignancy (PET staging): Initial Staging (PI) TECHNIQUE: Imaging protocol: Following at least four-hour fasting and following the injection of F-18-FDG, low dose CT images were obtained. Then, PET images were obtained. Attenuation corrected images were constructed using the CT scan. Fused images of PET and CT were reviewed. The standardized uptake values (SUV) reported below are maximum values within a region of interest, expressed in gm/ml. Exam includes orbital meatal line to mid-thigh. Radiopharmaceutical: 13.83 mCi F-18 FDG (Fluorodeoxyglucose), IV. Time of imaging post radiopharmaceutical administration: 1 hour Injection site: Left antecubital COMPARISON: MRI brain 05/01/2022, CT chest abdomen wo con 04/19/2022 9:22 AM FINDINGS: Brain: Visualized brain has normal physiologic uptake. Pharynx: No abnormal uptake. Larynx: No abnormal uptake. Lungs, pleura and trachea: No abnormal uptake. Mild dependent streaky density in the lungs is consistent with atelectasis. Assessment of the lungs is somewhat limited by motion artifact. Small bilateral pulmonary nodules are noted which are not radiotracer avid. The largest nodule is identified in the posterior right upper lobe measuring 8 mm on series 2, image 42 similar to the prior exam. Heart: Normal physiologic uptake. Mediastinal space: No abnormal uptake. Diaphragm: Small hiatal hernia. Liver: A low-density lateral right liver lobe 1.3 cm rounded lesion on series 3, image 65 is not radiotracer avid. No abnormal uptake. Gallbladder and bile ducts: No abnormal uptake. Pancreas: No abnormal uptake. Spleen: No abnormal uptake. Calcified granulomas in the spleen are present. Adrenal glands: No abnormal uptake. Kidneys and ureters: Normal physiologic uptake. Numerous rounded non radiotracer avid lesions in both kidneys are identified which demonstrate low-density consistent with simple cysts. A 1.2 cm hyperdense lesion in the inferior pole of the left kidney is not radiotracer avid on series 3, image 90. Stomach and bowel: No abnormal uptake. There are scattered colonic diverticula. Vasculature: No abnormal uptake. There are diffuse atherosclerotic changes including within the coronary arteries. Lymph nodes: Elevated uptake in an approximately 1.3 cm right hilar lymph node is noted on series 3, image 45, SUV max 5.3. Mild uptake in an approximately 1 cm lymph node in the aortopulmonary window is noted on series 3, image 42, SUV max 3.8. A non radiotracer avid pretracheal lymph node is noted on series 3, image 40. Bones/joints: Bones/joints: No abnormal uptake in the visualized axial and appendicular skeleton. There is mild diffuse vertebral body spondylosis. Suture anchors in the bilateral proximal humeral greater tuberosity is are noted. Soft tissues: Asymmetric uptake is identified within the proximal left hamstring tendons which are moderately asymmetrically thickened, SUV max 4.9. In the subcutaneous fat inferior to the coccyx a non radiotracer avid ovoid structure measuring 2.4 x 1.2 cm in the axial plane on series 3, image 132 is noted with central fluid density. METRICS: Mediastinal blood pool: SUV max 2.1 PET[facility] INITIAL [id number] IMPRESSION: 1. Radiotracer avid mediastinal and right hilar lymph nodes are noted (SUV max 5.3). A neoplastic etiology cannot be excluded however infectious or inflammatory changes may alternatively account for this appearance. 2. No abnormal uptake in the liver. A low-density lesion in the lateral right liver lobe is not radiotracer avid. No additional liver lesions are identified. 3. Non radiotracer avid pulmonary nodules are identified, the largest of which measures 8 mm in the right upper lobe. Assessment of small nodules can be limited by PET-CT. 4. Bilateral renal lesions are identified which are compatible with cysts, one of which appears hemorrhagic on the left. 5. Asymmetric uptake within the left hamstring tendons associated with thickening of the tendon suggestive of tendinosis. 6. A non radiotracer avid cystic structure in the subcutaneous fat adjacent to the inferior coccyx is noted compatible with the pilonidal cyst. 7. Additional nonurgent findings as detailed above.
== END 2022-05-04 10:53 | disposition home or self-care (01) ==
PROVIDERS: PCP Internal Medicine; Visit Provider Internal Medicine Hematology & Oncology
DX: C43.62 Malignant melanoma of left upper limb, including shoulder (principal)
CPT/HCPCS: 78815; A9552

== ENCOUNTER 2022-06-11 14:47 | Oncology outpatient (recurring) (ONCR) | payer MEDICARE, OTHER, SELFPAY | END 2022-06-11 23:59 | disposition home or self-care (01) | PROVIDERS: PCP Internal Medicine; Visit Provider Internal Medicine Hematology & Oncology | DX: Z08 Encounter for follow-up examination after completed treatment for malignant neoplasm (principal); Z85.820 Personal history of malignant melanoma of skin; R05.9 Cough, unspecified; R42 Dizziness and giddiness; R91.8 Other nonspecific abnormal finding of lung field; R59.1 Generalized enlarged lymph nodes | CPT/HCPCS: 99214 ==

== ENCOUNTER 2022-08-31 05:47 | Outpatient (CLI) | payer MEDICARE, SELFPAY ==
--- NOTE | 2022-08-31 08:00 | PETR_ITS ---
PROCEDURE INFORMATION: Exam: PET/CT Vertex to Mid-thigh Exam date and time: 08/31/2022 9:11 AM Age: 82 years old Clinical indication: Melanoma involving left upper extremity deltoid /shoulder. Follow up, special attention to lymph nodes LABS AND CLINICAL REPORTS: Glucose: 170 mg/dl Treatment strategy for malignancy (PET staging): Restaging (PS) TECHNIQUE: Imaging protocol: Following at least four-hour fasting and following the injection of radiopharmaceutical, low dose CT images were obtained. Then, PET images were obtained. Attenuation corrected images were constructed using the CT scan. Fused images of PET and CT were reviewed. The standardized uptake values (SUV) reported below are maximum values within a region of interest, expressed in gm/ml. Exam includes vertex to mid-thigh. Radiopharmaceutical: 10.64 mCi F-18 FDG (Fluorodeoxyglucose), IV. Time of imaging post radiopharmaceutical administration: 62.3 minutes. Injection site: Right antecubital vein. COMPARISON: PET/CT 05/04/2022. MR head 05/01/2022. 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 It is 1.5 x 1.5 x 3.1 cm (series 4, image 8) (transverse x ant-post x craniocaudal). It was not included within the [id number] of the prior PET/CT. Pharynx: No abnormal uptake. Larynx: No abnormal uptake. Lungs, pleura and trachea: No suspicious pulmonary nodules. A stable 8 mm nodule in the right upper lobe is not FDG avid (series 3, image 64). Its SUV max is only 0.9. Heart: Normal physiologic uptake. Coronary arteries: Coronary arteries are heavily calcified. Mediastinal space: Mediastinal calcifications indicate remote granulomatous disease. Mediastinal blood pool has an SUV max of 2.7 (previously 2.7). Liver: Stable 1.3 cm cyst in hepatic segment 7. No abnormal uptake. Gallbladder and bile ducts: No abnormal uptake. Pancreas: No abnormal uptake. Spleen: Multiple splenic calcifications are consistent with remote granulomatous disease. Adrenal glands: No abnormal uptake. Kidneys and ureters: A stable left renal cyst is 7.3 x 6.1 x 7.6 cm. Its density is 0 HU. No hydronephrosis or solid renal mass. Simple cyst at the upper pole the right kidney is 1.8 x 0.6 cm Stomach and bowel: Scattered colonic diverticula. Stable diffuse colonic uptake without focal mass is considered physiologic. SUVs max range up to 17.0 in the sigmoid colon. Numerous colonic diverticula, particularly in the sigmoid colon. Appendix: Stable appendicolith without evidence of appendicitis. Vasculature: No abnormal uptake. Lymph nodes: Both pulmonary neris are less FDG avid compared to the prior PET/CT. The right pulmonary hilum has an SUV max of 4.7 (previously 5.3). The left pulmonary hilum has an SUV max of 2.8 (previously 3.5). A right lower paratracheal mediastinal lymph node has an SUV max of 3.6 (previously 3.7). Bones/joints: Suture anchors in the bilateral proximal humeral greater tuberosity are consistent with rotator cuff repairs. Soft tissues: Mild left hamstring tendinosis is improved. It is smaller and less FDG avid. Its SUV max is only 3.4 (previously 4.9). A probable uncomplicated pilonidal cyst is smaller. It is 2.2 x 1.6 x 2.0 cm (previously 2.4 x 1.8 x 2.2 cm) (transverse x ant-post x craniocaudal) (axial image 154). Its density is 18 HU. Its SUV max is only 1.1. PET/PET [facility] SUBSEQ [id number] IMPRESSION: 1. No suspicious lymphadenopathy. 2. No suspicious pulmonary nodules. Stable 8 mm nodule in the RUL is not FDG avid. 3. Stable bilateral simple appearing renal cysts. 4. An uncomplicated probable pilonidal cyst is slightly smaller. 5. Mild left hamstring tendinosis is improved. 6. Stable chronic cortical infarct at the medial right parietal lobe.
== END 2022-08-31 05:48 | disposition home or self-care (01) ==
PROVIDERS: PCP Internal Medicine; Visit Provider Internal Medicine Hematology & Oncology
DX: C43.62 Malignant melanoma of left upper limb, including shoulder (principal); R91.1 Solitary pulmonary nodule; N28.1 Cyst of kidney, acquired
CPT/HCPCS: 78815; A9552

== ENCOUNTER 2022-09-17 13:55 | Oncology outpatient (recurring) (ONCR) | payer MEDICARE, OTHER, SELFPAY ==
[2022-09-17 14:12] VITALS: BP 170/87; PULSE 63; RESP 18; TEMP 36.7; O2SAT 97
[2022-09-17 14:56] LABS: Basophils % 0.2 %; Eosinophils # 0.1 10^3/uL (0.0-0.8); Eosinophils % 1.1 %; Hemoglobin 11.5 g/dL (11.5-15.3); Lymphocytes # 1.9 10^3/uL (0.8-4.8); Lymphocytes % 29.6 %; Mean Corpuscular HGB Conc 31.9 g/dL (30.0-36.0); Mean Corpuscular Hemoglobin 29.7 pg (28.0-34.0); Mean Platelet Volume 9.6 fL (7.4-10.4); Monocytes # 0.7 10^3/uL (0.2-0.9); Monocytes % 10.2 %; Neutrophils # 3.84 10^3/uL (1.8-7.7); Neutrophils % 58.4 %; Nucleated Red Blood Cells % 0 %; Platelet Count 258 10^3/cmm (130-400); Red Blood Count 3.87 10^6/uL (4.1-5.3); White Blood Count 6.6 10^3/uL (4.0-10.0)
[2022-09-17 15:20] LABS: Alanine Aminotransferase 13 U/L (0-33); Albumin Level 4.3 g/dL (3.5-5.2); Alkaline Phosphatase 69 U/L (35-105); Aspartate Amino Transferase 15 U/L (0-32); Blood Urea Nitrogen 17 mg/dL (8-23); Calcium 9.1 mg/dL (8.5-10.5); Carbon Dioxide 28 mmol/L (22-29); Chloride 105 mmol/L (98-107); Globulin 2.1 g/dL (1.3-4.6); Glucose 98 mg/dL (65-115); Osmolality Calculated 298 mOsm/kg (285-295); Sodium 143 mmol/L (136-145); Total Bilirubin 0.3 mg/dL (0.15-1.2); Total Protein 6.4 g/dL (6.6-8.7)
== END 2022-10-11 23:59 | disposition home or self-care (01) ==
PROVIDERS: PCP Internal Medicine; Visit Provider Internal Medicine Hematology & Oncology
DX: Z85.820 Personal history of malignant melanoma of skin; E78.00 Pure hypercholesterolemia, unspecified
CPT/HCPCS: 36415; 80053; 85025; 99214

== ENCOUNTER 2023-02-07 07:49 | Oncology outpatient (recurring) (ONCR) | payer MEDICARE, OTHER, SELFPAY ==
--- OUTSIDE RECORDS SUMMARY | 2023-02-07 07:50 | XMS_ITS | Patient Health Record ---
Author Name Unknown Organization [facility] Address [address] [place] [address] Care Team Providers Care Machine Bender Name Role Phone Yvonne Witt MD Primary Care Provider Unavailab Francesco Hansen Unavailable [phone] ALLERGIES Allergen (clinical drug ingredient) Drug/Non Drug Allergy documented on EMR Reaction Allergy Type Onset Date Status codeine codeine Makes her Crazy Drug Allergy A ctive RESULTS Component Value Reference Range Notes US Carotid Doppler Bilateral -[id number] (Not yet reviewed by provider) Interpretation: Performing Lab: Notes/Report: This report was dictated at the [facility] FINAL REPORT US Carotid Doppler Bilateral -94890 (Not yet reviewed by provider) Interpretation: Performing Lab: Notes/Report: iey=[id number]=iSite yfh=[id number]&org=iSite REASON FOR REFERRAL No Information MEDICATIONS Medication SIG (Take, Route, Frequency, Duration) Notes Start Date End Date Status amLODIPine Besylate 10 MG 1 tablet Orall y Once a day Active Zinc 50 MG 1 tablet Orally Once a day some days Active Aspirin 81 MG 1 tablet Orally Once a day Active Clopidogrel Bisulfate 75 MG 1 tablet Ora lly Once a day Active Propranolol HCl 80 MG 1 tablet Orally Twice a day for 30 day(s) Active metFORMIN HCl 1000 MG 1 tablet with a meal Orally BID Active Vitamin C 500 MG 1 capsule Orally daily some days Active Atorvastatin Calcium 20 MG 1 tablet Oral ly Once a day for 90 days Active Multivitamin - 1 tablet Orally Once a day some days Active Famotidine 20 MG 1 tablet at bedtime as needed Orally Once a day for 90 DAYS Active glyBURIDE 5 MG 0.5 tablet Orally bid for 30 day(s) takes as needed Active Losartan Potassium 50 MG 1 tablet Orally Once a day Active hydroCHLOROthiazide 12.5 MG 1 TABLET Ora lly Q AM Active SOCIAL HISTORY Tobacco Use: Social History Observation Description Date Details (start date - stop date) Never Smoker NA - NA Sex Assigned At : Social History Observation Description Sex Assigned At Unknown Tobacco Use/Smoking Question Answer Notes Are you a nonsmoker Alcohol Screen (Audit-C) Question Answer Notes Did you have a drink containing alcohol in the p ast year? No Points 0 Interpretation Negative PROBLEMS Problem Type ICD Code Onset Dates Problem Status W/U Status Risk SNOMED Code Notes Problem Localized edema (R60.0) Active confirmed Localized edema (867974957) [id number] ed Description:Loca lized edema Problem Dizziness and giddiness (R42) Active confirmed Dizziness an d giddiness (463305299) [id number] ed Description:Dizz iness and giddiness Problem Atherosclerotic heart disease of [place] coronary artery without angina pectoris (I25.10) Active confirmed Atherosclerotic heart disease of [place] coronary artery without angina pectoris (146936195566267 ) [id number]-Awti ed Description:Eric nary arteriosclerosis Problem Essential primary hypertension (I10) Active confirmed 54042030 Problem Carotid stenosis, left (I65.22) Active confirmed Left carotid artery occlusion (838362363355538 ) Problem Left carotid stenosis (I65.22) Active confirmed 647374858813125 Problem History of coronary artery stent placement (Z95.5) Active confirmed 857667313 Problem Hyperlipidemia, unspecified hyperlipidemia type (E78.5) Active confirmed 78482806 Problem Type 2 diabetes mellitus with unspecified complications (E11.8) Active confirmed 97901215 VITAL SIGNS Heart Rate 58 /min 09/19/2022 Temperature 98.2 degrees Fahrenheit 09/19/2022 Oximetry 96 % 09/19/2022 Blood pressure diastolic 84 mm Hg 09/19/2022 Weight-kg 70.76 kg 09/19/2022 Height 60 in 09/19/2022 Blood pressure systolic 146 mm Hg 09/19/2022 Weight 156 lbs 09/19/2022 BMI 30.46 kg/m2 09/19/2022 Encounters Encounter Location Date Provider Diagnosis [facility] [address] [place] [address] 09/19/2022 Francesco Stafford Left carotid stenosi s I65.22 and H/O carotid endarterectomy Z98.890 Formerly [facility] [address] [place] [address] 09/19/2022 Francesco Stafford ASSESSMENTS Encounter Date Diagnosis Assessment Notes Treatment Notes Treatment Clinical Notes 09/19/2022 H/O carotid endarterectomy (ICD-10 - Z98.890) 09/19/2022 Left carotid stenosi s (ICD-10 - I65.22) PLAN OF TREATMENT Pending Test Test Name Order Date ABORh 40359, 52142 05/25/2021 Antibody Screen 02872 05/25/2021 Basic Metabolic Panel [id number] 05/22/2021 CBC Reflex Man Diff 03020, 55853 022 Chest PA/Lat-17445 05/22/2021 Chest PA/Lat-35197 05/22/2021 US Carotid Doppler Bilateral-64682 09/19 US Carotid Doppler Bilateral-16134 09/19 US Carotid Doppler Bilateral-54166 09/13 US Carotid Doppler Bilateral-44641 09/13 Glucometer WBG--60009 05/25/2021 Glucometer WBG--34685 05/25/2021 Glucometer WBG--90921 05/25/2021 Glucometer WBG--25703 05/26/2021 WBC Auto Diff--41302 05/22/2021 BB ABORH-81074,29623 05/25/2021 Next Appt Details Provider Name:Nubia Lira, 09/18/2023 10:30:00 AM, [address] [place] [address] [address], [place], [address], Provider Name:Francesco ellis, 09/18/2023 10:30:00 AM, [address] [place] [address] [address], [place], [address], Provider Name:Francesco ellis, 09/18/2023 10:30:00 AM, [address], [place], [address], Insurance Providers Payer Name Payer Address Payer Phone Subscriber Number Group Number Insured Name Patient Relationship to Insured Coverage Start Date Coverage End Date [employer] - Out of Network [address] [address] [place] [address] [id number] SONAM MONTESINOS Self - patient is the insured MEDICAL (GENERAL) HISTORY Medical History History ICD Code diabetes mellitus hypertension obesity hyperlipidemia gastroesophageal reflux disease (GERD) coronary artery disease mild diastolic dysfunction mild mitral & tricuspid regurgitation normal EF Surgical History Surgery Date(Month/Year) stenting of the LAD hysterectomy john shoulder surgery skin cancer removal carotid endarterectomy 05/25 Left Hospitalization History Reason Date(Month/Year) skin cancer removed 05/2019
[2023-02-07 08:00] VITALS: BP 144/72; PULSE 64; RESP 16; TEMP 36.1; O2SAT 96
[2023-02-07 08:20] LABS: Basophils % 0.2 %; Eosinophils # 0.1 10^3/uL (0.0-0.8); Hematocrit 33.3 % (36-47); Lymphocytes # 1.5 10^3/uL (0.8-4.8); Mean Corpuscular HGB Conc 32.1 g/dL (30-55); Mean Corpuscular Hemoglobin 30.4 pg (27-33); Mean Corpuscular Volume 94.6 fl (85-98); Mean Platelet Volume 9.2 fL (7.4-10.4); Monocytes # 0.6 10^3/uL (0.2-0.9); Monocytes % 12.6 %; Neutrophils # 2.72 10^3/uL (1.8-7.7); Nucleated Red Blood Cells % 0 %; Platelet Count 236 10^3/cmm (157-399); Red Blood Count 3.52 10^6/uL (3.85-5.65); Red Cell Distribution Width 14.7 % (12.1-15.1); White Blood Count 4.86 10^3/uL (3.29-11.43)
[2023-02-07 08:46] LABS: Alanine Aminotransferase 13 U/L (0-33); Alkaline Phosphatase 65 U/L (35-105); Anion Gap 13.2 (5-19); Aspartate Amino Transferase 14 U/L (0-32); Blood Urea Nitrogen 22 mg/dL (8-23); Calcium 9.3 mg/dL (8.5-10.5); Carbon Dioxide 28 mmol/L (22-29); Chloride 106 mmol/L (98-107); Globulin 2.1 g/dL (1.3-4.6); Glucose 153 mg/dL (65-115); Osmolality Calculated 302 mOsm/kg (285-295); Potassium 4.2 mmol/L (3.5-5.1); Sodium 143 mmol/L (136-145); Total Bilirubin 0.4 mg/dL (0.15-1.2); Total Protein 6.1 g/dL (6.6-8.7)
== END 2023-02-11 23:59 | disposition home or self-care (01) ==
PROVIDERS: Nurse Practitioner Family; PCP Internal Medicine; Visit Provider Internal Medicine Hematology & Oncology
DX: C43.62 Malignant melanoma of left upper limb, including shoulder (principal)
CPT/HCPCS: 36415; 80053; 85025

== ENCOUNTER 2023-03-12 13:13 | Oncology outpatient (recurring) (ONCR) | payer MEDICARE, OTHER, SELFPAY ==
[2023-03-12 13:28] VITALS: BP 129/65; PULSE 52; RESP 16; TEMP 36.3; O2SAT 92
[2023-03-12 13:44] LABS: Basophils % 0.3 %; Eosinophils % 0.7 %; Hematocrit 33.8 % (36-47); Lymphocytes # 2.2 10^3/uL (0.8-4.8); Lymphocytes % 38.1 %; Mean Corpuscular HGB Conc 32.2 g/dL (30-55); Mean Corpuscular Hemoglobin 30.3 pg (27-33); Mean Corpuscular Volume 93.9 fl (85-98); Mean Platelet Volume 9.4 fL (7.4-10.4); Monocytes # 0.6 10^3/uL (0.2-0.9); Monocytes % 10.2 %; Neutrophils # 2.97 10^3/uL (1.8-7.7); Neutrophils % 50.5 %; Nucleated Red Blood Cells % 0 %; Platelet Count 244 10^3/cmm (157-399); Red Cell Distribution Width 14.6 % (12.1-15.1); White Blood Count 5.88 10^3/uL (3.29-11.43)
[2023-03-12 14:04] LABS: Alanine Aminotransferase 13 U/L (0-33); Albumin Level 4.1 g/dL (3.5-5.2); Alkaline Phosphatase 68 U/L (35-105); Anion Gap 15.9 (5-19); Aspartate Amino Transferase 17 U/L (0-32); Blood Urea Nitrogen 16 mg/dL (8-23); Calcium 8.9 mg/dL (8.5-10.5); Carbon Dioxide 24 mmol/L (22-29); Chloride 106 mmol/L (98-107); Globulin 2.4 g/dL (1.3-4.6); Glucose 90 mg/dL (65-115); Osmolality Calculated 295 mOsm/kg (285-295); Potassium 3.9 mmol/L (3.5-5.1); Sodium 142 mmol/L (136-145); Total Bilirubin 0.3 mg/dL (0.15-1.2); Total Protein 6.5 g/dL (6.6-8.7)
== END 2023-03-13 23:59 | disposition home or self-care (01) ==
PROVIDERS: PCP Internal Medicine; Visit Provider Nurse Practitioner Family
DX: C43.62 Malignant melanoma of left upper limb, including shoulder (principal); Z85.820 Personal history of malignant melanoma of skin; E78.00 Pure hypercholesterolemia, unspecified; Z08 Encounter for follow-up examination after completed treatment for malignant neoplasm; R42 Dizziness and giddiness; R91.8 Other nonspecific abnormal finding of lung field; R73.9 Hyperglycemia, unspecified
CPT/HCPCS: 36415; 80053; 85025; 99213

== ENCOUNTER 2023-07-09 12:38 | Oncology outpatient (recurring) (ONCR) | payer MEDICARE, OTHER, SELFPAY ==
[2023-07-09 13:08] LABS: Basophils % 0.4 %; Eosinophils % 0.6 %; Hematocrit 36.5 % (36-47); Lymphocytes # 1.9 10^3/uL (0.8-4.8); Lymphocytes % 27.1 %; Mean Corpuscular HGB Conc 32.3 g/dL (30-55); Mean Corpuscular Hemoglobin 29.6 pg (27-33); Mean Corpuscular Volume 91.5 fl (85-98); Mean Platelet Volume 9.9 fL (7.4-10.4); Monocytes # 0.7 10^3/uL (0.2-0.9); Monocytes % 9.2 %; Neutrophils # 4.42 10^3/uL (1.8-7.7); Neutrophils % 62.3 %; Nucleated Red Blood Cells % 0 %; Platelet Count 255 10^3/cmm (157-399); Red Blood Count 3.99 10^6/uL (3.85-5.65); Red Cell Distribution Width 13.7 % (12.1-15.1); White Blood Count 7.09 10^3/uL (3.29-11.43)
[2023-07-09 13:33] LABS: Alanine Aminotransferase 14 U/L (0-33); Albumin Level 4.4 g/dL (3.5-5.2); Alkaline Phosphatase 74 U/L (35-105); Aspartate Amino Transferase 15 U/L (0-32); Blood Urea Nitrogen 20 mg/dL (8-23); Calcium 9.1 mg/dL (8.5-10.5); Carbon Dioxide 28 mmol/L (22-29); Chloride 104 mmol/L (98-107); Globulin 2.6 g/dL (1.3-4.6); Glucose 143 mg/dL (65-115); Osmolality Calculated 299 mOsm/kg (285-295); Sodium 142 mmol/L (136-145); Total Bilirubin 0.4 mg/dL (0.15-1.2)
== END 2023-07-13 23:59 | disposition home or self-care (01) ==
PROVIDERS: PCP Internal Medicine; Visit Provider Nurse Practitioner Family
DX: C43.62 Malignant melanoma of left upper limb, including shoulder (principal); Z85.820 Personal history of malignant melanoma of skin; E78.00 Pure hypercholesterolemia, unspecified; Z08 Encounter for follow-up examination after completed treatment for malignant neoplasm; R42 Dizziness and giddiness; R91.8 Other nonspecific abnormal finding of lung field; R73.9 Hyperglycemia, unspecified
CPT/HCPCS: 36415; 80053; 85025; 99214

== ENCOUNTER → 2023-07-16 10:33 | Outpatient (BNVA) | payer MEDICARE, OTHER, SELFPAY | PROVIDERS: PCP Internal Medicine; Referring Provider Nurse Practitioner Family; Visit Provider Internal Medicine | DX: E07.9 Disorder of thyroid, unspecified (principal); H57.89 Other specified disorders of eye and adnexa; E11.9 Type 2 diabetes mellitus without complications; E03.9 Hypothyroidism, unspecified; E78.2 Mixed hyperlipidemia; Z79.84 Long term (current) use of oral hypoglycemic drugs | CPT/HCPCS: 99204 ==

== ENCOUNTER 2023-07-24 14:35 | Outpatient (CLI) | payer MEDICARE, OTHER, SELFPAY ==
[2023-07-24] MEDS: iohexol 350 mg/mL 500 mL Btl (per mL) PO (15:17)
[2023-07-24 15:44] LABS: Free T4 Free Thyroxine 1.18 ng/dL (0.82-1.77); Thyroid Stimulating Hormone 2.75 uIU/mL (0.27-4.20)
[2023-07-24] MEDS: iohexol 350 mg/mL 500 mL Btl (per mL) IV (15:45)
--- NOTE | 2023-07-24 16:00 | CTR_ITS ---
PROCEDURE INFORMATION: Exam: CT Chest With Contrast; Diagnostic Exam date and time: 07/24/2023 3:41 PM Age: 83 years old Clinical indication: Condition or disease; Other: Melanoma; Prior surgery; Surgery date: 6+ months; Surgery type: Hips, bilat shoulder; Additional info: Surveillance TECHNIQUE: Imaging protocol: Diagnostic computed tomography of the chest with contrast. Radiation optimization: All CT scans at this facility use at least one of these dose optimization techniques: automated exposure control; mA and/or kV adjustment per patient size (includes targeted exams where dose is matched to clinical indication); or iterative reconstruction. Contrast material: OMNI 350; Contrast volume: 100 ml; Contrast route: INTRAVENOUS (IV); COMPARISON: CT chest abdomen wo con 04/19/2022 9:22 AM RADIATION DOSE METRICS: Total DLP (mGy-cm): 825.38 FINDINGS: Lungs: There is a 7 mm rounded nodule located in the perihilar portion of the right middle lobe. A 2nd 6 mm nodule is noted laterally in the right upper lobe. A 4 mm nodule is noted more posteriorly in the right lower lobe. Two separate 4 mm nodules are noted in the left lower lobe. No other lung nodule or infiltrate noted. Pleural spaces: Unremarkable. No pneumothorax. No pleural effusion. Heart: Unremarkable. No cardiomegaly. No pericardial effusion. Lymph nodes: Unremarkable. No enlarged lymph nodes. Vasculature: Unremarkable. No aortic aneurysm. Bones/joints: Unremarkable. No acute fracture. Soft tissues: Unremarkable. PROCEDURE INFORMATION: Exam: CT Abdomen And Pelvis With Contrast Exam date and time: 07/24/2023 3:41 PM Age: 83 years old Clinical indication: Condition or disease; Other: Melanoma; Prior surgery; Surgery date: 6+ months; Surgery type: Hips, bilat shoulder; Additional info: Surveillance TECHNIQUE: Imaging protocol: Computed tomography of the abdomen and pelvis with contrast. Radiation optimization: All CT scans at this facility use at least one of these dose optimization techniques: automated exposure control; mA and/or kV adjustment per patient size (includes targeted exams where dose is matched to clinical indication); or iterative reconstruction. Contrast material: OMNI 350; Contrast volume: 100 ml; Contrast route: INTRAVENOUS (IV); COMPARISON: CT chest abdomen wo con 04/19/2022 9:22 AM RADIATION DOSE METRICS: Total DLP (mGy-cm): 825.38 FINDINGS: Lungs: Lung bases are clear. No pleural effusion. Liver: 1.3 cm hypodensity involves the right hepatic lobe. Gallbladder and bile ducts: Normal. No calcified stones. No ductal dilation. Pancreas: Normal. No ductal dilation. Spleen: Normal. No splenomegaly. Adrenal glands: Normal. No mass. Kidneys and ureters: Bilateral renal cysts are noted. The largest cyst measures 7.7 cm in the left kidney. Stomach and bowel: Multiple diverticula involve the sigmoid colon. There is no sign of diverticulitis. Appendix: No evidence of appendicitis. Intraperitoneal space: Unremarkable. No free air. No significant fluid collection. Vasculature: Unremarkable. No abdominal aortic aneurysm. Lymph nodes: Unremarkable. No enlarged lymph nodes. Urinary bladder: Unremarkable as visualized. Reproductive: Unremarkable as visualized. Bones/joints: Unremarkable. No acute fracture. Soft tissues: Unremarkable. CT/CT chest abdpel w/*[id number] IMPRESSION: 1. There is no evidence of active neoplastic disease. 2. Stable benign-appearing lung nodules IMPRESSION: 1. There is no evidence of active neoplastic disease. 2. A benign renal cyst or cysts have been detected. No further follow-up imaging is required. 3. Sigmoid diverticulosis noted COMMENTS: Consistent with the [employer]'s Incidental Findings Committee white paper (J Am Blake Radiol 2018): Any incidental renal lesion less than 1 cm or classified as too small to characterize, or any incidental cystic renal lesion characterized as simple-appearing, is likely benign. No follow-up imaging is recommended for these lesions per consensus recommendations based on imaging criteria.
== END 2023-07-24 14:36 | disposition home or self-care (01) ==
LOC: RAD 14:36
PROVIDERS: Internal Medicine; PCP Internal Medicine; Visit Provider Nurse Practitioner Family
DX: C43.62 Malignant melanoma of left upper limb, including shoulder (principal); E03.9 Hypothyroidism, unspecified; H57.89 Other specified disorders of eye and adnexa; E07.9 Disorder of thyroid, unspecified; E11.9 Type 2 diabetes mellitus without complications
CPT/HCPCS: 71260; 74177; 84439; 84443; Q9967

== ENCOUNTER 2023-10-01 11:01 | Outpatient (CLI) | payer MEDICARE, OTHER, SELFPAY ==
[2023-10-01 11:47] LABS: Creatinine Urine, Random 29 mg/dL (28-217); Microalbumin Random Urine 7 ug/dL (0-20)
[2023-10-01 11:48] LABS: Microalbum Creatinine Ratio Ur 241 mg/dL (0-20)
[2023-10-01 11:52] LABS: Estmated Average Glucose 151; Hemoglobin A1C 6.9 % (4.0-6.0)
[2023-10-01 12:00] LABS: Alanine Aminotransferase 10 U/L (0-33); Albumin Level 4.2 g/dL (3.5-5.2); Alkaline Phosphatase 69 U/L (35-105); Anion Gap 16.3 (5-19); Aspartate Amino Transferase 14 U/L (0-32); Blood Urea Nitrogen 20 mg/dL (8-23); Carbon Dioxide 26 mmol/L (22-29); Chloride 104 mmol/L (98-107); Chol HDL Ratio 2.88 mg/dL (0.0-4.40); Cholesterol 138 mg/dL (0-200); Free T4 Free Thyroxine 1.31 ng/dL (0.82-1.77); Globulin 2.5 g/dL (1.3-4.6); Glucose 139 mg/dL (65-115); HDL Cholesterol 48 mg/dL (60-100); LDL Cholesterol Calculated 24 mg/dL (50-129); Osmolality Calculated 299 mOsm/kg (285-295); Potassium 4.3 mmol/L (3.5-5.1); Sodium 142 mmol/L (136-145); Thyroid Stimulating Hormone 1.69 uIU/mL (0.27-4.20); Total Bilirubin 0.4 mg/dL (0.15-1.2); Total Protein 6.7 g/dL (6.6-8.7); Triglycerides 329 mg/dL (0-150)
[2023-10-02 21:34] LABS: T3 Total 73 ng/dL (76-181)
[2023-10-03 07:14] LABS: Thyroid Peroxidase Antobodies <1 IU/mL (<9)
[2023-10-10 14:10] LABS: TSH Receptor Binding Antibody <1.00 IU/L (< OR = 2.00)
== END 2023-10-01 11:02 | disposition home or self-care (01) ==
PROVIDERS: PCP Internal Medicine; Visit Provider Internal Medicine
DX: H57.89 Other specified disorders of eye and adnexa; E11.9 Type 2 diabetes mellitus without complications; E07.9 Disorder of thyroid, unspecified; E78.2 Mixed hyperlipidemia
CPT/HCPCS: 36415; 80053; 80061; 82044; 83036; 83516; 84439; 84443; 84480; 86376; 86800

== ENCOUNTER 2023-11-07 07:57 | Oncology outpatient (recurring) (ONCR) | payer MEDICARE, OTHER, SELFPAY ==
[2023-11-07 08:28] LABS: Basophils % 0.3 %; Eosinophils % 0.6 %; Hematocrit 34.9 % (36-47); Lymphocytes # 1.8 10^3/uL (0.8-4.8); Lymphocytes % 26.1 %; Mean Corpuscular HGB Conc 32.1 g/dL (30-55); Mean Corpuscular Hemoglobin 29.7 pg (27-33); Mean Corpuscular Volume 92.6 fl (85-98); Mean Platelet Volume 9.3 fL (7.4-10.4); Monocytes # 0.6 10^3/uL (0.2-0.9); Monocytes % 9.2 %; Neutrophils # 4.29 10^3/uL (1.8-7.7); Neutrophils % 63.4 %; Nucleated Red Blood Cells % 0 %; Platelet Count 249 10^3/cmm (157-399); Red Blood Count 3.77 10^6/uL (3.85-5.65); Red Cell Distribution Width 13.9 % (12.1-15.1); White Blood Count 6.77 10^3/uL (3.29-11.43)
[2023-11-07 08:57] LABS: Alanine Aminotransferase 12 U/L (0-33); Albumin Level 4.1 g/dL (3.5-5.2); Alkaline Phosphatase 78 U/L (35-105); Anion Gap 16.3 (5-19); Aspartate Amino Transferase 13 U/L (0-32); Blood Urea Nitrogen 19 mg/dL (8-23); Calcium 9.1 mg/dL (8.5-10.5); Carbon Dioxide 26 mmol/L (22-29); Chloride 105 mmol/L (98-107); Creatinine Clr Calc Pharmacy 40.5083; Globulin 2.5 g/dL (1.3-4.6); Glucose 192 mg/dL (65-115); Osmolality Calculated 303 mOsm/kg (285-295); Potassium 4.3 mmol/L (3.5-5.1); Sodium 143 mmol/L (136-145); Total Bilirubin 0.4 mg/dL (0.15-1.2); Total Protein 6.6 g/dL (6.6-8.7)
== END 2023-11-12 23:59 | disposition home or self-care (01) ==
PROVIDERS: PCP Internal Medicine; Visit Provider Nurse Practitioner Family
DX: C43.62 Malignant melanoma of left upper limb, including shoulder (principal); Z85.820 Personal history of malignant melanoma of skin; E78.00 Pure hypercholesterolemia, unspecified
CPT/HCPCS: 36415; 80053; 85025; 99214

== ENCOUNTER → 2023-11-11 09:00 | Outpatient (BNVA) | payer MEDICARE, OTHER, SELFPAY | PROVIDERS: PCP Internal Medicine; Visit Provider Internal Medicine | DX: E11.9 Type 2 diabetes mellitus without complications (principal); H57.89 Other specified disorders of eye and adnexa; E07.9 Disorder of thyroid, unspecified; Z79.84 Long term (current) use of oral hypoglycemic drugs | CPT/HCPCS: 99214 ==

== ENCOUNTER 2024-04-01 09:07 | Oncology outpatient (recurring) (ONCR) | payer MEDICARE, OTHER, SELFPAY ==
[2024-04-01 09:43] LABS: Basophils % 0.3 %; Eosinophils # 0.1 10^3/uL (0.0-0.8); Eosinophils % 0.8 %; Hematocrit 35.9 % (36-47); Lymphocytes # 1.7 10^3/uL (0.8-4.8); Lymphocytes % 27.5 %; Mean Corpuscular HGB Conc 31.8 g/dL (30-55); Mean Corpuscular Hemoglobin 29.7 pg (27-33); Mean Corpuscular Volume 93.5 fl (85-98); Mean Platelet Volume 9.3 fL (7.4-10.4); Monocytes # 0.6 10^3/uL (0.2-0.9); Monocytes % 9.4 %; Neutrophils # 3.86 10^3/uL (1.8-7.7); Neutrophils % 61.7 %; Nucleated Red Blood Cells % 0 %; Platelet Count 221 10^3/cmm (157-399); Red Blood Count 3.84 10^6/uL (3.85-5.65); Red Cell Distribution Width 13.7 % (12.1-15.1); White Blood Count 6.26 10^3/uL (3.29-11.43)
[2024-04-01 10:03] LABS: Alanine Aminotransferase 12 U/L (0-33); Albumin Level 4.1 g/dL (3.5-5.2); Alkaline Phosphatase 73 U/L (35-105); Anion Gap 16.4 (5-19); Aspartate Amino Transferase 16 U/L (0-32); Blood Urea Nitrogen 20 mg/dL (8-23); Carbon Dioxide 25 mmol/L (22-29); Chloride 105 mmol/L (98-107); Globulin 2.4 g/dL (1.3-4.6); Glucose 171 mg/dL (65-115); Osmolality Calculated 301 mOsm/kg (285-295); Potassium 4.4 mmol/L (3.5-5.1); Sodium 142 mmol/L (136-145); Total Bilirubin 0.4 mg/dL (0.15-1.2); Total Protein 6.5 g/dL (6.6-8.7)
== END 2024-04-13 23:59 | disposition home or self-care (01) ==
PROVIDERS: Nurse Practitioner; PCP Internal Medicine; Visit Provider Nurse Practitioner Family
DX: C43.62 Malignant melanoma of left upper limb, including shoulder (principal)
CPT/HCPCS: 36415; 80053; 85025; 99214

== ENCOUNTER 2024-09-30 10:22 | Oncology outpatient (recurring) (ONCR) | payer MEDICARE, OTHER, SELFPAY ==
[2024-09-30 10:39] LABS: Basophils % 0.5 %; Eosinophils # 0.1 10^3/uL (0.0-0.8); Eosinophils % 0.8 %; Hematocrit 33.1 % (36-47); Lymphocytes # 2.2 10^3/uL (0.8-4.8); Lymphocytes % 32.8 %; Mean Corpuscular HGB Conc 32.6 g/dL (30-55); Mean Corpuscular Hemoglobin 29.6 pg (27-33); Mean Corpuscular Volume 90.7 fl (85-98); Mean Platelet Volume 9.3 fL (7.4-10.4); Monocytes # 0.7 10^3/uL (0.2-0.9); Monocytes % 10.2 %; Neutrophils # 3.68 10^3/uL (1.8-7.7); Neutrophils % 55.2 %; Nucleated Red Blood Cells % 0 %; Platelet Count 220 10^3/cmm (157-399); Red Blood Count 3.65 10^6/uL (3.85-5.65); Red Cell Distribution Width 13.6 % (12.1-15.1); White Blood Count 6.65 10^3/uL (3.29-11.43)
[2024-09-30 10:56] LABS: Alanine Aminotransferase 11 U/L (0-33); Albumin Level 3.9 g/dL (3.5-5.2); Alkaline Phosphatase 80 U/L (35-105); Anion Gap 17.3 (5-19); Aspartate Amino Transferase 13 U/L (0-32); Blood Urea Nitrogen 20 mg/dL (8-23); Calcium 8.9 mg/dL (8.5-10.5); Carbon Dioxide 22 mmol/L (22-29); Chloride 108 mmol/L (98-107); Globulin 2.4 g/dL (1.3-4.6); Glucose 167 mg/dL (65-115); Osmolality Calculated 302 mOsm/kg (285-295); Potassium 4.3 mmol/L (3.5-5.1); Sodium 143 mmol/L (136-145); Total Bilirubin 0.3 mg/dL (0.15-1.2); Total Protein 6.3 g/dL (6.6-8.7)
[2024-09-30 12:54] LABS: Reticulocyte % 1.6 % (0.5-2.0)
[2024-09-30 13:12] LABS: Lactate Dehydrogenase 170 U/L (135-214)
[2024-09-30 13:33] LABS: Ferritin 44 ng/mL (15-150); Iron 68 ug/dL (37-145); Percent Saturation 25.8 % (20-50); Total Iron Binding Capacity 263 mcg/dl; Unsaturated Iron Binding 195 ug/dL (112-347)
[2024-09-30 13:34] LABS: Folate Level 19.9 ng/mL (4.8-37.3)
[2024-09-30 13:49] LABS: Vitamin B12 209 pg/mL (232-1245)
== END 2024-10-11 23:59 | disposition home or self-care (01) ==
PROVIDERS: Internal Medicine; PCP Internal Medicine; Visit Provider Nurse Practitioner Family
DX: Z08 Encounter for follow-up examination after completed treatment for malignant neoplasm (principal); Z85.820 Personal history of malignant melanoma of skin; R91.8 Other nonspecific abnormal finding of lung field; D64.9 Anemia, unspecified
CPT/HCPCS: 36415; 80053; 82607; 82728; 82746; 83010; 83540; 83550; 83615; 85025; 85045; 99213

== ENCOUNTER 2024-10-14 12:46 | Oncology outpatient (recurring) (ONCR) | payer MEDICARE, OTHER, SELFPAY | END 2024-11-11 23:59 | disposition home or self-care (01) | PROVIDERS: PCP Internal Medicine; Visit Provider Nurse Practitioner Family | DX: C43.62 Malignant melanoma of left upper limb, including shoulder (principal) | CPT/HCPCS: 99214 ==

== ENCOUNTER 2024-12-15 13:55 | Oncology outpatient (recurring) (ONCR) | payer MEDICARE, OTHER, SELFPAY ==
[2024-12-15 14:23] LABS: Hematocrit 34.7 % (36-47); Hemoglobin 11.10 g/dL (11.27-16.99); Mean Corpuscular HGB Conc 32.0 g/dL (30-55); Mean Corpuscular Hemoglobin 29.3 pg (27-33); Mean Corpuscular Volume 91.6 fl (85-98); Nucleated Red Blood Cells % 0 %; Platelet Count 237 10^3/cmm (157-399); Red Blood Count 3.79 10^6/uL (3.85-5.65); White Blood Count 6.17 10^3/uL (3.29-11.43)
[2024-12-15 14:41] LABS: Alanine Aminotransferase 16 U/L (0-33); Albumin Level 4.2 g/dL (3.5-5.2); Alkaline Phosphatase 92 U/L (35-105); Anion Gap 14.2 (5-19); Aspartate Amino Transferase 18 U/L (0-32); Blood Urea Nitrogen 16 mg/dL (8-23); Calcium 9.3 mg/dL (8.5-10.5); Carbon Dioxide 28 mmol/L (22-29); Chloride 103 mmol/L (98-107); Creatinine Clr Calc Pharmacy 44.3094; Globulin 2.6 g/dL (1.3-4.6); Glucose 106 mg/dL (65-115); Osmolality Calculated 294 mOsm/kg (285-295); Potassium 4.2 mmol/L (3.5-5.1); Sodium 141 mmol/L (136-145); Total Protein 6.8 g/dL (6.6-8.7)
[2024-12-15 14:57] LABS: Vitamin B12 262 pg/mL (232-1245)
== END 2025-01-11 23:59 | disposition home or self-care (01) ==
PROVIDERS: Nurse Practitioner; PCP Internal Medicine; Visit Provider Nurse Practitioner Family
DX: Z08 Encounter for follow-up examination after completed treatment for malignant neoplasm (principal); Z85.820 Personal history of malignant melanoma of skin; D64.9 Anemia, unspecified; R91.8 Other nonspecific abnormal finding of lung field; E11.9 Type 2 diabetes mellitus without complications; H57.89 Other specified disorders of eye and adnexa; E07.9 Disorder of thyroid, unspecified; I21.9 Acute myocardial infarction, unspecified
CPT/HCPCS: 36415; 80053; 82607; 83090; 83615; 83921; 85025; 99213

== ENCOUNTER → 2024-12-30 09:51 | Outpatient (BNVA) | payer MEDICARE, OTHER, SELFPAY | PROVIDERS: PCP Family Medicine; Visit Provider Family Medicine | DX: E11.9 Type 2 diabetes mellitus without complications (principal) | CPT/HCPCS: 80061; 83036; 83721; 84439; 84443 ==

== ENCOUNTER 2025-03-24 11:47 | Oncology outpatient (recurring) (ONCR) | payer MEDICARE, SELFPAY ==
[2025-03-24 12:59] LABS: Alanine Aminotransferase 17 U/L (0-33); Albumin Level 4.1 g/dL (3.5-5.2); Alkaline Phosphatase 107 U/L (35-105); Anion Gap 15.3 (5-19); Aspartate Amino Transferase 20 U/L (0-32); Blood Urea Nitrogen 21 mg/dL (8-23); Calcium 9.4 mg/dL (8.5-10.5); Carbon Dioxide 26 mmol/L (22-29); Chloride 105 mmol/L (98-107); Ferritin 41 ng/mL (15-150); Globulin 2.5 g/dL (1.3-4.6); Glucose 143 mg/dL (65-115); Iron 79 ug/dL (37-145); Osmolality Calculated 299 mOsm/kg (285-295); Potassium 4.3 mmol/L (3.5-5.1); Sodium 142 mmol/L (136-145); Total Iron Binding Capacity 268 mcg/dl; Total Protein 6.6 g/dL (6.6-8.7); Unsaturated Iron Binding 189 ug/dL (112-347)
[2025-03-24 13:13] LABS: Vitamin B12 555 pg/mL (232-1245)
[2025-03-24 13:38] LABS: Hematocrit 35.9 % (36-47); Hemoglobin 11.50 g/dL (11.27-16.99); Mean Corpuscular HGB Conc 32.0 g/dL (30-55); Mean Corpuscular Hemoglobin 29.6 pg (27-33); Mean Corpuscular Volume 92.3 fl (85-98); Nucleated Red Blood Cells % 0 %; Platelet Count 254 10^3/cmm (157-399); Red Blood Count 3.89 10^6/uL (3.85-5.65); White Blood Count 6.88 10^3/uL (3.29-11.43)
== END 2025-04-13 23:59 | disposition home or self-care (01) ==
PROVIDERS: Internal Medicine; PCP Family Medicine; Visit Provider Nurse Practitioner Family
DX: Z08 Encounter for follow-up examination after completed treatment for malignant neoplasm (principal); Z85.820 Personal history of malignant melanoma of skin; D64.9 Anemia, unspecified; Z86.79 Personal history of other diseases of the circulatory system; R91.8 Other nonspecific abnormal finding of lung field
CPT/HCPCS: 36415; 80053; 82607; 82728; 82746; 83010; 83540; 83550; 83615; 83921; 85025; 85045; 99213